=== PATIENT | male | born 1970 | race Hispanic/Latino ===

== ENCOUNTER 2021-09-21 08:15 | Observation (INO) | payer SELFPAY ==
[2021-09-21 08:55] LABS: #Basophils 0.1 thou/uL (0.0-0.2); #Eosinphils 0.1 thou/uL (0.0-0.7); #Lymphocytes 1.2 thou/uL (1.20-3.40); #Monocytes 0.3 thou/uL (0.11-0.59); #Neutrophils 5.4 thou/uL (1.40-6.50); %Basophils 0.8 % (0.0-1.0); %Eosinophils 1.4 % (0.0-10.0); %Lymphocytes 17.1 % (21.0-51.0); %Monocytes 4.6 % (0.0-10.0); %Neutrophils 76.1 % (42.0-75.0); Hemoglobin 14.7 g/dL (14.0-18.0); Mean Corpuscular HGB CONC 32.5 g/dL (32.0-36.0); Mean Corpuscular Hemoglobin 28.1 pg (27.0-31.0); Mean Corpuscular Volume 86.6 fL (78.0-98.0); Mean Platelet Volume 7.7 fL (7.4-10.4); Platelet Count 252 thou/uL (130-400); RBC Distribution Width 12.8 % (11.5-14.5); Red Blood Cell (RBC) Count 5.24 mill/uL (4.70-6.10); White Blood Cell (WBC) Count 7.1 thou/uL (4.8-10.8)
[2021-09-21 09:21] LABS: ALT (SGPT) 26 U/L (8-55); AST (SGOT) 22 U/L (5-34); Albumin 4.6 g/dL (3.5-5.0); Alkaline Phosphatase 75 U/L (40-110); Anion Gap 13 mmol/L (10-20); BUN (Urea Nitrogen) 11 mg/dL (8.4-25.7); Bilirubin, Total 0.9 mg/dL (0.2-1.2); Calc. Creatinine Clearance 0 mL/min (70-130); Calcium 9.2 mg/dL (7.8-10.44); Carbon Dioxide 25 mmol/L (22-29); Chloride 106 mmol/L (98-107); Globulin 3.1 g/dL (2.4-3.5); Glucose 106 mg/dL (70-105); Potassium 3.8 mmol/L (3.5-5.1); Protein, Total 7.7 g/dL (6.0-8.3); Sodium 140 mmol/L (136-145)
[2021-09-21] MEDS ORDERED: Metoclopramide HCl 10 MG/2 ML VIAL ONE (10:26)
[2021-09-21] MEDS ORDERED: diphenhydrAMINE 50 MG/ML VIAL ONE (10:26)
[2021-09-21 11:33] LABS: Bilirubin Negative (Negative); Blood, Urine Negative (Negative); Clarity Clear (Clear); Glucose, Urine (Dipstick) Normal (Negative); Ketone, Urine Negative (Negative); Leukocyte Negative Leu/uL (Negative); Nitrite Negative (Negative); Protein, Urine (Dipstick) Negative (Neg-Trace); Specific Gravity, Urine 1.013 (1.002-1.036); Urobilinogen Normal mg/dL (Less than 2)
[2021-09-21] MEDS ORDERED: Senokot S 8.6-50 MG TAB PO PRN (13:37)
[2021-09-21] MEDS ORDERED: Ondansetron PF 4 MG/2 ML Vial IVP PRN (13:37)
[2021-09-21] MEDS ORDERED: Ondansetron ODT 4 MG TAB PO PRN (13:37)
[2021-09-21] MEDS ORDERED: Acetaminophen 325 MG TAB PO PRN (13:37)
[2021-09-21] MEDS ORDERED: hydrALAZINE 20 MG/ML VIAL SLOW IVP PRN (13:39)
[2021-09-21 15:56] VITALS: BMI 29.7
[2021-09-21 18:41] LABS: SARS-CoV-2 NAA Rapid Test Not Detected (NotDetected)
[2021-09-22 05:17] LABS: #Eosinphils 0.1 thou/uL (0.0-0.7); #Lymphocytes 2.3 thou/uL (1.20-3.40); #Monocytes 0.4 thou/uL (0.11-0.59); #Neutrophils 4.6 thou/uL (1.40-6.50); %Basophils 0.5 % (0.0-1.0); %Eosinophils 1.8 % (0.0-10.0); %Lymphocytes 30.8 % (21.0-51.0); %Monocytes 5.3 % (0.0-10.0); %Neutrophils 61.6 % (42.0-75.0); Hemoglobin 14.4 g/dL (14.0-18.0); Mean Corpuscular HGB CONC 34.4 g/dL (32.0-36.0); Mean Corpuscular Hemoglobin 29.8 pg (27.0-31.0); Mean Corpuscular Volume 86.9 fL (78.0-98.0); Mean Platelet Volume 8.5 fL (7.4-10.4); Platelet Count 254 thou/uL (130-400); RBC Distribution Width 13.5 % (11.5-14.5); Red Blood Cell (RBC) Count 4.84 mill/uL (4.70-6.10); White Blood Cell (WBC) Count 7.5 thou/uL (4.8-10.8)
[2021-09-22 05:34] LABS: Anion Gap 13 mmol/L (10-20); BUN (Urea Nitrogen) 14 mg/dL (8.4-25.7); Calc. Creatinine Clearance 142 mL/min (70-130); Calcium 9.1 mg/dL (7.8-10.44); Carbon Dioxide 26 mmol/L (22-29); Chloride 106 mmol/L (98-107); Glucose 104 mg/dL (70-105); Potassium 3.8 mmol/L (3.5-5.1); Sodium 141 mmol/L (136-145)
[2021-09-22 12:25] LABS: Free T4 (Free Thyroxine) 1.05 ng/dL (0.70-1.48); Thyroid Stimulating Hormone 0.6009 uIU/mL (0.35-4.94)
[2021-09-22] MEDS ORDERED: Magnevist 469MG/ML 20 ML VIAL ONE (13:29)
[2021-09-22 16:12] VITALS: TEMP 97.9
[2021-09-22 16:43] VITALS: BP 153/103
[2021-09-22] MEDS ORDERED: Atorvastatin Calcium 10 MG TAB PO SCH (21:00)
[2021-09-23] MEDS ORDERED: Lisinopril 10 MG TAB PO SCH (09:00)
== END 2021-09-22 20:10 | disposition home or self-care (01) ==
LOC: ERS 08:15 → NEURO 13:09
PROVIDERS: ADMIT Hospitalist; ATTEND Hospitalist
DX: R42 Dizziness and giddiness (principal); R51.9 Headache, unspecified; R11.2 Nausea with vomiting, unspecified; E23.6 Other disorders of pituitary gland; I10 Essential (primary) hypertension; E78.5 Hyperlipidemia, unspecified; K21.9 Gastro-esophageal reflux disease without esophagitis; Z91.14 Patient's other noncompliance with medication regimen; Z20.822 Contact with and (suspected) exposure to COVID-19
CPT/HCPCS: 36415; 70450; 70553; 80048; 80053; 81003; 82533; 84439; 84443; 85025; 93005; 96374; 96375; A9579; G0378; J1200; J2405; J2765; U0002